=== PATIENT | male | born 1960 | race African-American/Black ===

== ENCOUNTER 2017-02-01 19:45 | Emergency (ER) | payer SELFPAY ==
[~2017-02-01] VITALS: Ht 175.3 cm; Wt 100.6 kg
[2017-02-02] MEDS ORDERED: KETOROLAC 60MG/2ML VIAL IM ONE (02:30)
[2017-02-02 05:48] VITALS: BP 114/67
== END 2017-02-02 07:50 | disposition home or self-care (01) ==
LOC: ER 19:45
DX: N43.3 Hydrocele, unspecified (principal); M25.571 Pain in right ankle and joints of right foot; N50.82 Scrotal pain; M54.5 Low back pain; M79.89 Other specified soft tissue disorders; V03.10XA Pedestrian on foot injured in collision with car, pick-up truck or van in traffic accident, initial encounter; Y93.89 Activity, other specified; Y92.488 Other paved roadways as the place of occurrence of the external cause
CPT/HCPCS: 73610; 76870; 93976; 99284; J1885; Z7610